=== PATIENT | female | born 1975 | race Caucasian/White ===

== ENCOUNTER 2020-03-21 10:17 | Observation (INO) | payer OTHER, SELFPAY ==
[2020-03-21] VITALS (25 sets, daily range): BP systolic 93–160; BP diastolic 62–107; PULSE 61–85; RESP 13–20; TEMP 36.4–37; O2SAT 94–100; BMI 31.1; BMI 31.5
--- NOTE | 2020-03-21 | IR_ITS ---
APPROVED REPORT Patient Location: Emergent [facility] Hewer: FLOYD Yang RT (R) PROCEDURES Left heart catheterization Left ventriculogram Selective coronary angiogram INDICATION Acute non-ST elevation myocardial infarction Informed consent was obtained prior to the procedure. COMPLICATIONS NONE Estimated Blood Loss: LESS THAN 10 ML TECHNIQUE One percent lidocaine used to anesthetize the right anterior aspect of the wrist. The right radial artery was accessed via the Seldinger technique. A 6 [place]inamese sheath was placed in the right radial artery. 2.5 mg of verapamil, 800 mcg of nitroglycerin, 1mg Lidocaine and 5000 U Heparin were given through the arterial sheath. The tig catheter was also used to perform left heart catheterization, left ventriculogram and selective coronary angiogram. At the end of the procedure the sheath was removed good hemostasis was achieved using Traclet band, patient was transferred to the postop holding area in stable condition. ANGIOGRAPHIC RESULTS The left main artery Normal The left anterior descending artery Normal The circumflex artery Normal The right coronary artery Dominant normal The MCMAHAN ventriculogram reveals Reduced ejection fraction with mid anterior apical ballooning estimated ejection fraction 40 to 45% The left ventricular end-diastolic pressure 20 mmHg IMPRESSION Takotsubo cardiomyopathy, AKA broken heart syndrome Normal coronary arteries Reduced ejection fraction with regional wall motion abnormality Mildly elevated LVEDP PLAN 1. Supportive care 2. Echocardiogram in the morning to better evaluate ejection fraction Electronically signed by : Darren Carnes, 03/21/2020 15:51:07
--- NOTE | 2020-03-21 10:13 | ECG_ITS ---
APPROVED REPORT Exam: Resting ECG HR:81 bpm ECG Measurements Heart Rate 81 AXES TX 166 P 53 QRSd 58 QRS 21 QT 374 T 52 QTc 434 Conclusion Normal sinus rhythm with sinus arrhythmia Left atrial abnormality Poor R wave progression Abnormal ECG Electronically signed by : Doron Lutz, 03/21/2020 17:42:21
--- NOTE | 2020-03-21 10:24 | XR_ITS ---
PROCEDURE: XR CHEST 2V CLINICAL HISTORY: chest pain COMPARISON: No exams were available for comparison FINDINGS: The cardiomediastinal silhouette and pulmonary vascularity are within normal limits. The lungs are clear without infiltrates, suspicious nodules, or pleural effusions. No acute bony abnormalities. IMPRESSION: No acute findings. Dictated by: Ancelmo Davis MD 03/21/2020 13:53 Ancelmo Davis MD in [place] 03/21/2020 13:53
--- NOTE | 2020-03-21 10:25 | HMH.EDCP ---
ED Disposition Clinical Impression: NSTEMI (non-ST elevated myocardial infarction) Disposition: Admitted As Inpatient Condition on Discharge: Undetermined - Critical Care Critical Care Time: No Attestation: On , the high probability of a clinically significant, sudden or life threatening deterioration of the following system(s) required my full and direct attention, intervention and personal management. The time I documented below is in addition to time spent performing reported procedures but includes the following listed in this critical care notation. Medical Decision Making - Medical Records Medical records reviewed: Yes: I reviewed the patient's medical records. MR Comment: No significant cardiac history noted - Joni Inquiry Pt receiving controlled substance: No Vital Signs: 03/21/20 10:18 03/21/20 11:18 03/21/20 11:30 Temperature 98.6 F Temperature Source Oral Pulse Rate [Left Radial] 84 75 71 Respiratory Rate 20 20 16 Blood Pressure [Right Arm] 160/107 H 132/95 H 125/76 Blood Pressure Mean [Right Arm] 124 107 92 Blood Pressure Source [Right Arm] Automatic Cuff Automatic Cuff Blood Pressure Position [Right Arm] Sitting Sitting Sitting 02 Sat by Pulse Oximetry 96 97 97 Oxygen Delivery Method Room Air Room Air Room Air 03/21/20 12:00 03/21/20 12:30 03/21/20 13:00 Temperature Temperature Source Pulse Rate [Left Radial] 70 68 16 L Respiratory Rate 16 14 18 Blood Pressure [Right Arm] 124/89 128/90 124/91 H Blood Pressure Mean [Right Arm] 100 102 102 Blood Pressure Source [Right Arm] Automatic Cuff Automatic Cuff Automatic Cuff Blood Pressure Position [Right Arm] Sitting Sitting 02 Sat by Pulse Oximetry 100 98 100 Oxygen Delivery Method Room Air Room Air Room Air - Lab Data Lab Results 03/21/20 10:20: WBC 10.0, RBC 4.98, Hgb 14.8, Hct 43.8, MCV 87.9, MCH 29.8, MCHC 33.8, RDW 13.1, Plt Count 281, MPV 8.7, Neut % (Auto) 48.3, Lymph % (Auto) 41.9, [place] % (Auto) 4.2, Eos % (Auto) 5.1, Baso % (Auto) 0.5, Neut # (Auto) 4.8, Lymph # (Auto) 4.2, [place] # (Auto) 0.4, Eos # (Auto) 0.5 H, Baso # (Auto) 0.1 03/21/20 10:20: Sodium 139, Potassium 4.2, Chloride 106, Carbon Dioxide 24, Anion Gap 13.2, BUN 12, Creatinine 0.60, Estimated Creat Clear 138, Estimated GFR 108, Est GFR ( Amer) 130, Glucose 109 H, Calcium 9.3, Troponin I < 0.01 03/21/20 10:20: D-Dimer 0.36 03/21/20 13:51: Troponin I 0.83 H Result diagrams: 03/21/20 10:20 03/21/20 10:20 Orders (Tests/Meds): ED MEDICATIONS Discontinued Medications Generic Name Dose Route Start Last Admin Trade Name Freq PRN Reason Stop Dose Admin Aspirin 324 mg 03/21/20 10:24 03/21/20 10:37 Aspirin 81mg Chewable Tablet PO 03/21/20 10:25 324 mg ONCE ONE Administration ORDERS Category Date Time Status Covid-19 IgG/IgM ([facility]) Stat Lab 03/21/20 10:20 Received Troponin I Q3H Lab 03/21/20 16:30 Ordered - Radiology Data #1 Image(s): Chest Image Reviewed: Yes I reviewed the patient's radiology image Preliminary Findings: Normal/NAD - ECG Data Tracing #1 I reviewed this ECG and interpreted as documented below: Normal sinus rhythm rate of 81, no ST segment ECG normal with no acute: arrhythmias, ischemia, conduction abnormalities, chamber hypertrophy Normal Sinus Rhythm: Yes - LANEY Score for Non-Stemi Age of Patient: 40-49 years old Heart Rate: 70-89 bpm Systolic Blood Pressure: 120-139 mmhg Serum Creatinine: 0.40-0.79 mg/dl CHF Kill[place] Class: I-No CHF Other Risk Factors: Elevated Cardiac Enzymes or Biomarkers Non-Stemi Risk Score: 86 Medical Decision Narrative: 44-year-old female who presents with acute left-sided chest pain radiation down the left arm and left jaw with associated nausea and shortness of breath. Differential includes ACS, pulmonary embolism, aortic dissection, pneumonia, pneumothorax, anxiety, and others. Laboratory data is obtained including CBC, CMP, troponin, D-dimer. D-dimer nega
[2020-03-21 10:36] LABS: Basophils # 0.1 K/mm3 (0-0.2); Basophils % 0.5 % (0.1-2.0); Eosinophils # 0.5 K/mm3 (0.0-0.4); Eosinophils % 5.1 % (0.1-12.0); Hematocrit 43.8 % (37.0-47.0); Hemoglobin 14.8 g/dL (12.2-16.2); Lymphocytes # 4.2 K/mm3 (0.7-4.5); Lymphocytes % 41.9 % (10-50); Mean Corpuscular HGB Conc 33.8 g/dL (31.8-35.4); Mean Corpuscular Hemoglobin 29.8 pg (27.0-31.2); Mean Corpuscular Volume 87.9 fl (81-99); Mean Platelet Volume 8.7 fl (7.4-10.4); Monocytes # 0.4 K/mm3 (0.1-1.0); Monocytes % 4.2 % (1.7-9.3); Neutrophils # 4.8 K/mm3 (1.8-7.8); Neutrophils % 48.3 % (37.0-80.0); Platelet Count 281 K/mm3 (142-424); Red Blood Count 4.98 M/mm3 (4.20-5.40); Red Cell Distribution Width 13.1 % (11.5-17.5)
[2020-03-21 10:38] LABS: Chloride 106 mmol/L (98-107); Sodium 139 mmol/L (136-145)
[2020-03-21 10:41] LABS: Blood Urea Nitrogen 12 mg/dl (7-17); Carbon Dioxide 24 mmol/L (22.0-30.0); Creatinine Clearance Estimated 138 mL/min (50-200); Estimated Glomerular Filt Rate 108 ml/min (>60); GFR (African American) 130 ML/MIN (>60)
[2020-03-21 10:42] LABS: Calcium 9.3 mg/dl (8.4-10.2); Glucose 109 mg/dl (74-100)
[2020-03-21 10:56] LABS: Troponin I < 0.01 ng/ml (0.00-0.034)
[2020-03-21 11:00] LABS: Anion Gap 13.2 mEq/L (5-15); Potassium 4.2 mmoL/L (3.5-5.1)
[2020-03-21 11:02] LABS: D-Dimer 0.36 ug/mL (0.15-8.0)
[2020-03-21 14:38] LABS: Troponin I 0.83 ng/ml (0.00-0.034)
--- NOTE | 2020-03-21 14:44 | PC.NURSE ---
Spoke to Rajinder George advised of elevated Troponin.
--- NOTE | 2020-03-21 15:01 | PC.NURSE ---
Rajinder George here , pt to go to [facility].
--- NOTE | 2020-03-21 15:01 | HMH.CNCARD ---
History of Present Illness Consult date: 03/21/20 Consult reason: chest pain Chief complaint: chest pain Additional Medical History:: 1. History of SVT x2, currently on no medication for this 2. Tobacco use History of present illness: 44-year-old female who presents with acute onset of left-sided chest pain that sharp and heavy radiating up into the left side of the jaw and left arm with numbness in the fingers. Associated with nausea no vomiting and diaphoresis. Patient has a history of SVT and states that this feels different. She has been under significant stress. Pain is 7 out of 10 at this time. The above per Dr. Reyna, ER MD Patient relates this left-sided chest pain with radiation to the back, neck, jaw and left arm is unlike anything she has ever felt with her SVT episodes. She denies history of diabetes, hypertension or hyperlipidemia. Her previous SVT episodes occurred 2 to 3 years ago and were significantly different than her current symptoms today. EKG showed sinus rhythm with poor R wave progression anteriorly and slight ST elevation in the inferior leads. Initial troponin was normal but second troponin has returned elevated at 0.8. Cardiology consulted for evaluation. Patient denies any chest pain at the current time of my evaluation. She did receive aspirin in the ER. She does relate significant stress in dealing with the arrest of her 14-year-old sons due to marijuana, recently. [facility] History Medical History: Denies:: Diabetes Mellitus Type 1, Diabetes Mellitus Type 2 *Have you ever received a pneumonia vaccine?: No *Have you received a flu vaccine this season?: No - *Social History Smoking Status: Current every day smoker Tobacco Type: cigarettes # Packs/Day (cigarettes): 1 Alcohol Intake: never *Occupational Status:: employed *Travel in the last 8 weeks: None Family Hx:: No significant family history Meds Allergies Allergy/AdvReac Type Severity Reaction Status Date / Time No Known Allergies Allergy Verified 03/21/20 10:23 Exam Vital signs and Labs for Last 24 Hours: Temp Pulse Resp BP Pulse Ox 98.6 F 16 L 18 124/91 H 100 03/21/20 10:18 03/21/20 13:00 03/21/20 13:00 03/21/20 13:00 03/21/20 13:00 Laboratory Results - last 24 hr 03/21/20 10:20: WBC 10.0, RBC 4.98, Hgb 14.8, Hct 43.8, MCV 87.9, MCH 29.8, MCHC 33.8, RDW 13.1, Plt Count 281, MPV 8.7, Neut % (Auto) 48.3, Lymph % (Auto) 41.9, [place] % (Auto) 4.2, Eos % (Auto) 5.1, Baso % (Auto) 0.5, Neut # (Auto) 4.8, Lymph # (Auto) 4.2, [place] # (Auto) 0.4, Eos # (Auto) 0.5 H, Baso # (Auto) 0.1 03/21/20 10:20: Sodium 139, Potassium 4.2, Chloride 106, Carbon Dioxide 24, Anion Gap 13.2, BUN 12, Creatinine 0.60, Estimated Creat Clear 138, Estimated GFR 108, Est GFR ( Amer) 130, Glucose 109 H, Calcium 9.3, Troponin I < 0.01 03/21/20 10:20: D-Dimer 0.36 03/21/20 13:51: Troponin I 0.83 H I & O for Last 24 hours: Intake & Output 03/19/20 03/20/20 03/21/20 03/22/20 11:59 11:59 11:59 11:59 Weight 165 lb - Constitutional no acute distress - *Routine HEENT Exam Head: Present: normocephalic Eye: Present: EOMI, PERRL ENT: Present: mucous membranes moist - *Routine Neck Exam Present: supple. Absent: lymphadenopathy - *Routine Respiratory Exam Present: CTA bilaterally - *Routine Cardiovascular Exam Present: RRR - *Routine Abdominal Exam Present: soft, normoactive bowel sounds. Absent: tenderness - *Routine Extremities Exam Absent: cyanosis, clubbing, edema - *Routine Skin Exam Present: warm. Absent: rash - *Routine Neurological Exam Present: alert, oriented X3 Review of Systems - Review of Systems Review of systems:: pertinent systems reviewed and negative unless documented below Assessment and Plan (1) Angina pectoris Status: Acute Category: Medical Code(s): I20.9 - Angina pectoris, unspecified (2) Elevated troponin I measurement Status: Acute Category: Medical Code(s): R77.8 - Ot
[2020-03-21 15:28] LABS: Coronavirus 19 IgG Antibody Positive (Negative); Coronavirus 19 IgM Antibody Negative (Negative)
--- NOTE | 2020-03-21 19:10 | PC.NURSE ---
report given to valencia
--- NOTE | 2020-03-21 20:14 | HMH.HP ---
*Chief complaint: chest pain *History of present illness: 44-year-old female who presents with acute onset of left-sided chest pain that sharp and heavy radiating up into the left side of the jaw and left arm with numbness in the fingers. Associated with nausea no vomiting and diaphoresis. Patient has a history of SVT and states that this feels different. She has been under significant stress. Pain is 7 out of 10 at this time. The above per Dr. Reyna, ER Patient relates this left-sided chest pain with radiation to the back, neck, jaw and left arm is unlike anything she has ever felt with her SVT episodes. She denies history of diabetes, hypertension or hyperlipidemia. Her previous SVT episodes occurred 2 to 3 years ago and were significantly different than her current symptoms today. EKG showed sinus rhythm with poor R wave progression anteriorly and slight ST elevation in the inferior leads. Initial troponin was normal but second troponin has returned elevated at 0.8. Cardiology consulted for evaluation. Patient denies any chest pain at the current time of my evaluation. She did receive aspirin in the ER. She does relate significant stress in dealing with the rest of her 14-year-old son due to marijuana recently. Patient was taken to [facility]. ANGIOGRAPHIC RESULTS The left main artery Normal The left anterior descending artery Normal The circumflex artery Normal The right coronary artery Dominant normal The MCMAHAN ventriculogram reveals Reduced ejection fraction with mid anterior apical ballooning estimated ejection fraction 40 to 45% The left ventricular end-diastolic pressure 20 mmHg IMPRESSION Takotsubo cardiomyopathy, AKA broken heart syndrome Normal coronary arteries Reduced ejection fraction with regional wall motion abnormality Mildly elevated LVEDP Echo is planned to further delineate cardiac anatomy. [facility] History Medical History: Reports:: Arrhythmia, Atrial Fibrillation, Palpitations Denies:: Cancer, Diabetes Mellitus Type 1, Diabetes Mellitus Type 2 *Have you ever received a pneumonia vaccine?: Yes *Have you received a flu vaccine this season?: Yes Other Medical History: Reports: Anemia Other Surgeries: Yes: Cardiac Catheterization Amputation: No - *Social History Last grade of school completed: Advanced degree Smoking Status: Current every day smoker Tobacco Type: cigarettes # Packs/Day (cigarettes): 1 Alcohol Intake: never *Occupational Status:: employed Housing: house *Travel in the last 8 weeks: None Family Hx:: Unable to obtain Review of Systems - Constitutional Denies anorexia - Eyes Denies blind spots - ENT Denies abnormal hearing - *Cardiovascular Reports chest pain, Reports chest pain at rest, Reports chest pain with activity, Reports rapid, pounding, or irregular heartbeat - *Respiratory Denies change in phlegm color - *Gastrointestinal Denies abdominal pain - *Genitourinary Denies abnormal periods - *Musculoskeletal Denies abnormal walking, Denies joint pain, Denies muscle weakness - Integumentary/Breasts Denies bleeding lesions, Denies yellowing of the skin - *Neurologic Reports unsteadiness, Reports dizziness, Denies abnormal walking, Denies abnormal hearing, Denies abnormal movements, Denies abnormal speech, Denies seizure-like activity, Denies localized weakness - Psychiatric Reports anxiety, Reports irritability - Endocrine Denies cold intolerance, Denies excessive sweating - Hematologic/Lymphatic Denies easy bleeding, Denies easy bruising - Allergic/Immunologic Denies wheezing Meds Allergies Allergy/AdvReac Type Severity Reaction Status Date / Time No Known Allergies Allergy Verified 03/21/20 10:23 Exam Vital signs and Labs for Last 24 Hours: Temp Pulse Resp BP Pulse Ox 97.8 F 72 18 138/82 97 03/21/20 19:10 03/21/20 19:10 03/21/20 19:10 03/21/20 19:10 03/21/20 19:10 Laboratory Results - last 24 hr 03/21/20 10:20: WB
--- NOTE | 2020-03-21 20:24 | PC.NURSE ---
PT AO*4, ON RA TOLERATING WELL O2 SATS WNL, TRACELET IN PLACE, PT DENIES PAIN, VSS, WILL CONTINUE TO MONITOR.
--- NOTE | 2020-03-21 20:30 | PC.NURSE ---
made aware of no cardiac nurse orders at this time. No new orders.
--- NOTE | 2020-03-22 02:37 | PC.NURSE ---
Pt is alert and oriented x4. No acute changes noted from previous shift. No c/o pain thus far. Ambulates independently in room, tolerates well. Right radial cath side dsg noted c/d/i with no s/s hematoma. Denies tenderness with palpation. Encouraged pt not to bear weight with RUE at this time. Pt verbalized understanding. Tolerated RA well with no c/o SOA. RR noted even and unlabored. Pt rested well with eyes closed this shift. No edema noted. Refused TEDS. VSS. B/P noted wnl. Remains safe. Call light within reach. Will continue to monitor.
[2020-03-22 04:00] VITALS: BP 100/56; PULSE 80; RESP 16; TEMP 36.8; O2SAT 97
[2020-03-22 05:09] VITALS: BMI 30.2
[2020-03-22 06:42] LABS: Basophils # 0.1 K/mm3 (0-0.2); Basophils % 0.5 % (0.1-2.0); Eosinophils # 0.5 K/mm3 (0.0-0.4); Eosinophils % 5.2 % (0.1-12.0); Hematocrit 41.4 % (37.0-47.0); Hemoglobin 13.8 g/dL (12.2-16.2); Lymphocytes % 32.1 % (10-50); Mean Corpuscular HGB Conc 33.2 g/dL (31.8-35.4); Mean Corpuscular Volume 87.2 fl (81-99); Mean Platelet Volume 8.6 fl (7.4-10.4); Monocytes # 0.4 K/mm3 (0.1-1.0); Monocytes % 4.7 % (1.7-9.3); Neutrophils # 5.3 K/mm3 (1.8-7.8); Neutrophils % 57.5 % (37.0-80.0); Platelet Count 248 K/mm3 (142-424); Red Blood Count 4.75 M/mm3 (4.20-5.40); Red Cell Distribution Width 13.1 % (11.5-17.5); White Blood Count 9.2 K/mm3 (4.8-10.8)
[2020-03-22 07:06] LABS: Chloride 106 mmol/L (98-107); Sodium 139 mmol/L (136-145)
[2020-03-22 07:07] LABS: Potassium 4.2 mmoL/L (3.5-5.1)
[2020-03-22 07:10] LABS: Anion Gap 10.2 mEq/L (5-15); Blood Urea Nitrogen 10 mg/dl (7-17); Calcium 8.7 mg/dl (8.4-10.2); Carbon Dioxide 27 mmol/L (22.0-30.0); Creatinine Clearance Estimated 134 mL/min (50-200); Estimated Glomerular Filt Rate 108 ml/min (>60); GFR (African American) 130 ML/MIN (>60); Glucose 106 mg/dl (74-100)
--- NOTE | 2020-03-22 07:17 | CA_ITS ---
APPROVED REPORT EXAM: Comprehensive 2D, Doppler, and color-flow Echocardiogram Vehicle Inspector: Evelin Galindo, RT(R) Ht: 5 ft 2 in Wt: 165lbs BSA: 1.76 BP: 120/82 mmHg Indications: CP, Smoker, AFIB, angina, elevated troponin, heart cath 03/21/20, NonSTEMI, takotsubo CM Echo Enhancing Agent Indication: Rule out thrombus Agent(s) / Amount(s) Used: Definity 2 cc 2D Dimensions LVOT 1.73 cm (M/F) 1.5-2.5 M-Mode Dimensions RVDd 2.61 cm (0.9-2.6) LA Diam 2.96 cm (1.9-4.0) LVDd 4.05 cm (3.5-5.7) Ao Diam 2.61 cm (2.0-3.7) LVDs 2.71 cm (3.5-5.7) IVSd 1.27 cm (0.6-1.1) PWd 0.70 cm (0.6-1.1) EF (Teich) 62.10% FS 33.10% EDV (Teich) 72.10 mL ESV (Teich) 27.30 mL LV Diastology E Decel Time 193.00 (160-240 msec) E/A Ratio 1.0 MED E' 7.60 (< 7 cm/sec) E'/MED E' Ratio 11.53 (>14) LAT E' 9.70 (<10 cm/sec) E/LAT E' Ratio 9.03 (>14) Mitral Valve MV E Max Ankit. 88.00 (40-130 cm/s) MV A Velocity 84.00 (40-130 cm/s) E/A Ratio 1.04 MV Decel. Time 193.00 (160-240 ms) MV PHT 57.00 ms Left Ventricle Left atrium is mildly enlarged, left ventricle is normal size, mild concentric left ventricular hypertrophy, visually estimated ejection fraction 40 to 45%, with marked hypokinesis involving the distal septum and anterior apical wall, there is no left ventricular thrombus seen, Definity contrast was utilized to delineate the endocardial surfaces. Grade 1 diastolic dysfunction seen without tissue Doppler evidence of raise left atrial pressure. Right Ventricle Right atrium and right ventricle are normal size and contractility. Aortic Valve Aortic valve is minimally thickened and fibrosed. There is no aortic stenosis aortic insufficiency. Mitral Valve Mitral valve is grossly normal, there is no mitral stenosis, there is mild mitral regurgitation. Tricuspid Valve Tricuspid valve grossly normal, there is mild tricuspid regurgitation. Tricuspid regurgitation jet velocity is inadequate for calculation of the right ventricular systolic pressure. Pulmonic Valve Pulmonic valve is poorly visualized. Great Vessels Aortic root is normal size. Pericardium No significant pericardial effusion noted. Conclusion 1. Normal left ventricular size, visually estimated ejection fraction 40 to 45% with multiple segmental wall motion abnormality described above, there is no left ventricular thrombus seen, Definity contrast was utilized to delineate the endocardial surfaces, grade 1 diastolic dysfunction seen without tissue Doppler evidence of raise left atrial pressure. 2. Mild mitral and tricuspid regurgitation. 3. No significant pericardial effusion noted. Electronically signed by : Sheldon Acosta, 03/22/2020 13:10:58
--- NOTE | 2020-03-22 07:30 | HMH.PHAVTE ---
[facility] Pharmacy VTE Monitoring - Patient Demographics Admission date: 03/21/20 Report Date: 03/22/20 Time: 07:30 Allergies/Adverse Reactions: Patient Allergies No Known Allergies Allergy (Verified 03/21/20 10:23) Height: 1.55 m Weight: 72.66 kg Patient Problems: Current Active Problems Angina pectoris (Acute) Elevated troponin I measurement (Acute) Tobacco use (Acute) NSTEMI (non-ST elevated myocardial infarction) (Acute) Broken heart syndrome (Acute) - VTE Risk Labs: VTE Related Lab Results Hgb 13.8 g/dL (12.2-16.2) 03/22/20 06:34 Hct 41.4 % (37.0-47.0) 03/22/20 06:34 Plt Count 248 K/mm3 (142-424) 03/22/20 06:34 BUN 10 mg/dl (7-17) 03/22/20 06:34 Creatinine 0.60 mg/dl (0.52-1.04) 03/22/20 06:34 Estimated Creat Clear 134 mL/min (50-200) 03/22/20 06:34 VTE Score: 4 VTE Risk Level: Low Risk - Prophylaxis VTE Prophylaxis Ordered?: Yes Types of VTE Prophylaxis: TEDS Knee High Location of Applied Device: Bilateral Lower Extremeties
--- NOTE | 2020-03-22 07:33 | P.PN_ITS ---
Subjective Date: 03/22/20 Time: 07:34 Principal diagnosis: Takotsubo cardiomyopathy Interval history: 44-year-old white female in bed in no acute distress. States she is feeling well and wants to go home. Denies any chest pain, pressure or tightness overnight. Results of cardiac catheterization explained to the patient all questions answered. Exam Vital signs and Labs for Last 24 Hours: Temp Pulse Resp BP Pulse Ox 98.3 F 80 16 100/56 L 97 03/22/20 04:00 03/22/20 04:00 03/22/20 04:00 03/22/20 04:00 03/22/20 04:00 Laboratory Results - last 24 hr 03/21/20 10:20: WBC 10.0, RBC 4.98, Hgb 14.8, Hct 43.8, MCV 87.9, MCH 29.8, MCHC 33.8, RDW 13.1, Plt Count 281, MPV 8.7, Neut % (Auto) 48.3, Lymph % (Auto) 41.9, [place] % (Auto) 4.2, Eos % (Auto) 5.1, Baso % (Auto) 0.5, Neut # (Auto) 4.8, Lymph # (Auto) 4.2, [place] # (Auto) 0.4, Eos # (Auto) 0.5 H, Baso # (Auto) 0.1 03/21/20 10:20: Sodium 139, Potassium 4.2, Chloride 106, Carbon Dioxide 24, Anion Gap 13.2, BUN 12, Creatinine 0.60, Estimated Creat Clear 138, Estimated GFR 108, Est GFR ( Amer) 130, Glucose 109 H, Calcium 9.3, Troponin I < 0.01 03/21/20 10:20: D-Dimer 0.36 03/21/20 10:20: SARS-CoV-2 IgG Ab (Rapid) Positive A, SARS-CoV-2 IgM Ab (Rapid) Negative 03/21/20 13:51: Troponin I 0.83 H 03/22/20 06:34: WBC 9.2, RBC 4.75, Hgb 13.8, Hct 41.4, MCV 87.2, MCH 29.0, MCHC 33.2, RDW 13.1, Plt Count 248, MPV 8.6, Neut % (Auto) 57.5, Lymph % (Auto) 32.1, [place] % (Auto) 4.7, Eos % (Auto) 5.2, Baso % (Auto) 0.5, Neut # (Auto) 5.3, Lymph # (Auto) 3.0, [place] # (Auto) 0.4, Eos # (Auto) 0.5 H, Baso # (Auto) 0.1 03/22/20 06:34: Sodium 139, Potassium 4.2, Chloride 106, Carbon Dioxide 27, Anion Gap 10.2, BUN 10, Creatinine 0.60, Estimated Creat Clear 134, Estimated GFR 108, Est GFR ( Amer) 130, Glucose 106 H, Calcium 8.7 I & O for Last 24 hours: Intake & Output 03/19/20 03/20/20 03/21/20 03/22/20 11:59 11:59 11:59 11:59 Intake Total 250 / 250 Balance 250 / 250 Weight 165 lb 160 lb 3 oz - Constitutional no acute distress - *Routine HEENT Exam Head: Present: normocephalic Eye: Present: EOMI, PERRL ENT: Present: mucous membranes moist - *Routine Neck Exam Present: supple. Absent: lymphadenopathy - *Routine Respiratory Exam Present: CTA bilaterally - *Routine Cardiovascular Exam Present: RRR - *Routine Abdominal Exam Present: soft, normoactive bowel sounds. Absent: tenderness - *Routine Extremities Exam Absent: cyanosis, clubbing, edema - *Routine Skin Exam Present: warm. Absent: rash - *Routine Neurological Exam Present: alert, oriented X3 Progress Note: A&P (1) Angina pectoris Status: Acute (2) Elevated troponin I measurement Status: Acute (3) Tobacco use Status: Acute (4) Takotsubo cardiomyopathy Status: Acute Assessment and Plan for All Diagnoses:: 1. Takotsubo cardiomyopathy secondary to stress related to her sons. Patient is on and recommend continuing aspirin 81 mg daily, metoprolol succinate 12.5 mg daily and lisinopril 2.5 mg daily. Echocardiogram to be obtained this morning but patient can be discharged home with follow-up next week. Would anticipate repeating echocardiogram in 3 months to reassess apical hypokinesis. 2. History of SVT 3. Tobacco use, cessation recommended.
[2020-03-22 07:54] VITALS: BP 107/68; PULSE 86; RESP 16; TEMP 36.8; O2SAT 96
[2020-03-22 08:00] VITALS: O2SAT 96
[2020-03-22 11:03] VITALS: BP 120/69; PULSE 85; RESP 12; TEMP 36.8; O2SAT 97
[2020-03-22 11:05] VITALS: BP 120/69; PULSE 85; RESP 12; TEMP 36.8; O2SAT 97
--- NOTE | 2020-03-22 11:44 | [facility].DCSUM ---
General - General Admission date:: 03/21/20 Discharge date: 03/22/20 HPI HPI: 44-year-old female who presents with acute onset of left-sided chest pain that sharp and heavy radiating up into the left side of the jaw and left arm with numbness in the fingers. Associated with nausea no vomiting and diaphoresis. Patient has a history of SVT and states that this feels different. She has been under significant stress. Pain is 7 out of 10 at this time. The above per Dr. Reyna ER Patient relates this left-sided chest pain with radiation to the back, neck, jaw and left arm is unlike anything she has ever felt with her SVT episodes. She denies history of diabetes, hypertension or hyperlipidemia. Her previous SVT episodes occurred 2 to 3 years ago and were significantly different than her current symptoms today. EKG showed sinus rhythm with poor R wave progression anteriorly and slight ST elevation in the inferior leads. Initial troponin was normal but second troponin has returned elevated at 0.8. Cardiology consulted for evaluation. Patient denies any chest pain at the current time of my evaluation. She did receive aspirin in the ER. She does relate significant stress in dealing with the rest of her 14-year-old son due to marijuana recently. Patient was taken to label paster. ANGIOGRAPHIC RESULTS The left main artery Normal The left anterior descending artery Normal The circumflex artery Normal The right coronary artery Dominant normal The [facility] ventriculogram reveals Reduced ejection fraction with mid anterior apical ballooning estimated ejection fraction 40 to 45% The left ventricular end-diastolic pressure 20 mmHg IMPRESSION Takotsubo cardiomyopathy, AKA broken heart syndrome Normal coronary arteries Reduced ejection fraction with regional wall motion abnormality Mildly elevated LVEDP Echo is planned to further delineate cardiac anatomy. Hospital Course Hospital Course: Laboratory Tests 03/21/20 03/21/20 03/21/20 10:20 10:20 10:20 WBC 10.0 RBC 4.98 Hgb 14.8 Hct 43.8 MCV 87.9 MCH 29.8 MCHC 33.8 RDW 13.1 Plt Count 281 MPV 8.7 Neut % (Auto) 48.3 Lymph % (Auto) 41.9 Lamb % (Auto) 4.2 Eos % (Auto) 5.1 Baso % (Auto) 0.5 Neut # (Auto) 4.8 Lymph # (Auto) 4.2 Lamb # (Auto) 0.4 Eos # (Auto) 0.5 H Baso # (Auto) 0.1 D-Dimer 0.36 Sodium 139 Potassium 4.2 Chloride 106 Carbon Dioxide 24 Anion Gap 13.2 BUN 12 Creatinine 0.60 Estimated Creat Clear 138 Estimated GFR 108 Est GFR ( Amer) 130 Glucose 109 H Calcium 9.3 Troponin I < 0.01 SARS-CoV-2 IgG Ab (Rapid) SARS-CoV-2 IgM Ab (Rapid) 03/21/20 03/21/20 03/22/20 10:20 13:51 06:34 WBC 9.2 RBC 4.75 Hgb 13.8 Hct 41.4 MCV 87.2 MCH 29.0 MCHC 33.2 RDW 13.1 Plt Count 248 MPV 8.6 Neut % (Auto) 57.5 Lymph % (Auto) 32.1 Lamb % (Auto) 4.7 Eos % (Auto) 5.2 Baso % (Auto) 0.5 Neut # (Auto) 5.3 Lymph # (Auto) 3.0 Lamb # (Auto) 0.4 Eos # (Auto) 0.5 H Baso # (Auto) 0.1 D-Dimer Sodium Potassium Chloride Carbon Dioxide Anion Gap BUN Creatinine Estimated Creat Clear Estimated GFR Est GFR ( Amer) Glucose Calcium Troponin I 0.83 H SARS-CoV-2 IgG Ab (Rapid) Positive A SARS-CoV-2 IgM Ab (Rapid) Negative 03/22/20 06:34 WBC RBC Hgb Hct MCV MCH MCHC RDW Plt Count MPV Neut % (Auto) Lymph % (Auto) Lamb % (Auto) Eos % (Auto) Baso % (Auto) Neut # (Auto) Lymph # (Auto) Lamb # (Auto) Eos # (Auto) Baso # (Auto) D-Dimer Sodium 139 Potassium 4.2 Chloride 106 Carbon Dioxide 27 Anion Gap 10.2 BUN 10 Creatinine 0.60 Estimated Creat Clear 134 Estimated GFR 108 Est GFR ( Amer) 130 Glucose 106 H Calcium 8.7 Troponin I SARS-CoV-2 IgG Ab (Rapid) SARS-CoV-2 IgM Ab (Rapid)
--- NOTE | 2020-03-22 12:05 | PC.NURSE ---
DISCUSSED DISCHARGE INSTRUCTIONS WITH PT ALONG WITH MEDICATIONS AND FOLLOW UP APPOINTMENTS. DISCUSSED RESTRICTIONS FROM HEART CATH. PT VERBALIZED UNDERSTANDING OF ALL INFORMATION. PHARMACY EDUCATED PT ON MEDICATIONS. IV WAS REMOVED WITH CATHETER INTACT. KOBAN AND 4X4S APPLIED. PT HAD NO COMPLAINTS OF PAIN OR SOB THIS SHIFT. PT IS CURRENTLY WAITING TO BE DISCHARGED. BED IN LOWEST POSITION. CALL LIGHT WITHIN REACH. VSS. WILL CONTINUE TO MONITOR.
== END 2020-03-22 12:10 | disposition home or self-care (01) ==
LOC: ER 15:13 → SDC 15:18 → 2ND 16:11
PROVIDERS: Internal Medicine; Admitting Provider Family Medicine; Emergency Provider Student in an Organized Health Care Education/Training Program; Referring Provider Family Medicine; Visit Provider Family Medicine
DX: I51.81 Takotsubo syndrome (principal); I48.91 Unspecified atrial fibrillation; I20.8 Other forms of angina pectoris; Z72.0 Tobacco use
CPT/HCPCS: 71046; 80048; 84484; 85025; 85378; 86328; 93005; 93306; 93458; 99152; 99284; C1769; G0378; J1644; Q9957; Q9967